=== PATIENT | female | born 1945 | race Caucasian/White ===

== ENCOUNTER 2017-09-24 06:56 | Day surgery (SDC) | payer OTHER ==
--- NOTE | 2017-09-14 11:43 | HP ---
Admitting History and Physical - Primary Care Physician PCP: Lilia Nguyen - Admission Chief Complaint: right breast atypia History of Present Illness: Patient is a 71 yo female who was noted to have right UIQ nodular asymmetry on mammo and MRI. Patient underwent a stereo on 07/14/2017 which was c/w PASH and ADH. Patient is now scheduled for right breast WE with needle localization. History Source: Patient Limitations to Obtaining History: No Limitations - Past Medical History Cardiovascular: Yes: Hyperlipdemia Home Medications - Allergies Allergies/Adverse Reactions: Allergies Allergy/AdvReac Type Severity Reaction Status Date / Time clarithromycin [From Biaxin] Allergy Verified 09/14/17 11:49 levofloxacin [From Levaquin] Allergy Verified 09/14/17 11:50 - Home Medications Home Medications (free text): atorvastatin Family Disease History - Family Disease History Family Disease History: CA: Father (melanoma) Review of Systems - Review of Systems Constitutional: reports: No Symptoms Cardiovascular: reports: No Symptoms Respiratory: reports: No Symptoms Physical Examination Constitutional: Yes: Well Nourished Breast(s): Yes: Other (Symmetrical and diffusely nodular without suspicious masses or adenopathy noted bilaterally.) Problem List - Problems (1) Atypical ductal hyperplasia of right breast Code(s): N60.91 - UNSPECIFIED BENIGN MAMMARY DYSPLASIA OF RIGHT BREAST Assessment/Plan right breast wide excision with needle localization
[2017-09-17 16:17] VITALS: BMI 31.4
[2017-09-24 07:33] VITALS: TEMP 98.4
[2017-09-24] MEDS ORDERED: LORazepam 0.5 MG TABLET ONE (08:05)
[2017-09-24] MEDS ORDERED: LORazepam 0.5 MG TABLET PO ONE (08:10)
[2017-09-24] MEDS ORDERED: MIDAZOLAM HCL 2 MG/2 ML SINGLE DOSE VIAL ONE ×2 (09:59→10:34)
[2017-09-24] MEDS ORDERED: PROPOFOL 20 ML ONE ×2 (09:59→10:47)
[2017-09-24] MEDS ORDERED: BUPIVACAINE HCL/PF 2.5 MG/ML - 30 ML VIAL IJ ONE (10:06)
[2017-09-24] MEDS ORDERED: LIDOCAINE HCL 1%, 10 MG/ML (20ML VIAL) ONE (10:06)
[2017-09-24] MEDS ORDERED: ceFAZolin SODIUM 1 GM VIAL ONE (10:28)
[2017-09-24] MEDS ORDERED: LIDOCAINE HCL 1%, 10 MG/ML (50 mL VIAL) IJ ONE (10:43)
[2017-09-24] MEDS ORDERED: BUPIVACAINE HCL/PF 0.25% (2.5MG/ML) 10 ML VIAL IJ ONE (11:17)
[2017-09-24] MEDS ORDERED: GUM MASTIC/STORAX/MSAL/ALCOHOL 1 DRP DROPSBTL MC ONE (11:20)
[2017-09-24] MEDS ORDERED: ONDANSETRON 4 MG/2 ML VIAL IVPUSH PRN (11:32)
[2017-09-24] MEDS ORDERED: KETOROLAC TROMETHAMINE 30 MG/1 ML VIAL IVPUSH PRN (11:32)
[2017-09-24] MEDS ORDERED: DEXTROSE 5%-0.45% SALINE 1,000 ML IV SCH (11:45)
[2017-09-24 13:20] VITALS: BP 140/75; PULSE 74
--- NOTE | 2017-09-25 09:26 | OP ---
DATE OF OPERATION: 09/24/2017 SURGEON: Fernie Nguyen MD ROAD CONDUCTOR: CHRIS Kurtz ANESTHESIOLOGIST: SPECIMEN: Right wide excision. ESTIMATED BLOOD LOSS: Minimal. DRAINS: None. INDICATION FOR PROCEDURE: The patient is a 71-year-old woman who had a mammogram in June 2017, which showed right upper inner quadrant asymmetry. Ultrasound showed a simple cyst which did not correspond to the mammographic findings. MRI showed asymmetry, and a biopsy showed PASH and atypia. Surgical excision was recommended. PROCEDURE: The patient was taken to Breast Imaging on the day of surgery, where she underwent a localization of the clip in the right breast. She was taken to the presurgical area where informed consent was obtained, and the right breast was identified with a marker. Examination of the right breast showed a localizing wire in the upper inner quadrant. She was taken to the operating room and placed on the operating table in the supine position. Sequential compression devices were placed on both legs. She received antibiotics prior to surgery. She was sedated. The right breast was prepped and draped in the usual fashion. A timeout was performed. The skin in the right upper inner breast was infiltrated with 1% lidocaine. An incision was made in the skin crease with a scalpel. The incision was made over the approximate position of the needle tip. The incision was deepened using electrocautery. The tissue was then mobilized down towards the chest wall until the tissue around the needle was from the remaining breast parenchyma. The breast tissue was quite fatty and dissected easily. The needle was disassembled, and the specimen was removed. The specimen was labeled with a long lateral stitch and a short superior stitch. A specimen radiograph showed the specimen was included. The specimen was placed in formalin and sent to Pathology. The wound was irrigated and inspected for hemostasis. Once hemostasis was satisfactory, the incision was closed. The deep tissue was closed with interrupted sutures of 2-0 plain. The dermis was closed with interrupted sutures of 3-0 Vicryl. The skin was closed with a running subcuticular closure of 4-0 Monocryl. The wound was cleaned and covered with Steri-Strips and a sterile gauze dressing. A surgical bra was then applied. The patient tolerated the procedure well. At the end of the procedure, all sponge, lap, and instrument counts were correct. She was taken to [facility] in satisfactory condition. FERNIE NGUYEN M.D. /[id number]
--- NOTE | 2017-09-29 16:34 | PATH ---
Surgical Pathology Report Patient Name: BRYAN BLEVINS [facility]. Rec. #: [id number] /Age/Gender: 1945 (Age: 72) / F Account: [id number] Location: [facility] AM[facility] Taken: 09/24/2017 Received: 09/24/2017 Reported: 09/29/2017 Physicians: Lilia Nguyen M.D. Specimen(s) Received RIGHT BREAST WIDE EXCISION Clinical History Right breast wide excision Final Diagnosis BREAST, RIGHT, WIDE EXCISION: FOCAL ATYPICAL DUCTAL HYPERPLASIA (ADH), USUAL DUCTAL HYPERPLASIA (UDH), STROMAL FIBROSIS AND FEW ASSOCIATED CALCIFICATIONS. PRIOR BIOPSY SITE CHANGES ARE PRESENT. Electronically Signed Taylor Longoria M.D. Gross Description Received in formalin, labeled "right breast wide excision," is a 4.4 x 3.0 x 2.1 cm. villalpando-yellow, irregular, portion of fibroadipose tissue with a needle localization wire present. There is a short suture marking the superior aspect and a long suture marking the lateral aspect, per the surgeon. There is no skin present. The specimen is inked as follows: superior and lateral blue; inferior green; medial yellow; anterior red; deep black. The specimen is serially sectioned from lateral to medial. Sectioning reveals a 1.6 x 1.3 x 1.3 cm ill-defined focus of firm fibrous tissue with associated hemorrhage. No definitive mass is identified. The specimen is entirely and sequentially submitted from medial to lateral and 8 cassettes with the medial margin in cassette 1 and the lateral margin in cassette 8. Time to formalin fixation: 10 minutes Total formalin fixation time: Approximately 31 hours. 09/25/2017 [facility]09/25/2017
== END 2017-09-24 12:45 | disposition home or self-care (01) ==
LOC: FASU 06:56
PROVIDERS: ATTEND Surgery
PROC: 0HBT0ZX Excision of Right Breast, Open Approach, Diagnostic (ICD-10-PCS; principal; 2017-09-24 10:44)
DX: N60.81 Other benign mammary dysplasias of right breast (principal); N60.31 Fibrosclerosis of right breast; N64.89 Other specified disorders of breast
CPT/HCPCS: 19281; 88307-TC